=== PATIENT | male | born 1990 | race African-American/Black ===

== ENCOUNTER 2021-04-14 11:37 | Emergency (ER) | payer OTHER ==
[~2021-04-14] VITALS: Ht 182.9 cm; Wt 76.7 kg
--- NOTE | 2021-04-14 11:45 | NUR ---
[facility]/ PD TOOK UNKNOWN AMOUNT OF TYLENOL,MOTRIN, NYQUIL AT 0930 S/P TEXTING FAMILY THAT "HE WANTS TO END IT." KEPT COMFORTABLE IN BED WITH CONTINUOUS SUPERVISION. SAFETY PRECAURIONS MAINTAINED
--- NOTE | 2021-04-14 12:08 | NUR ---
COVID 19 SWAB COLLECTED AND SEND TO LAB
[2021-04-14 12:09] LABS: BASOPHILS % (AUTO) 0.5 % (0.0-2.0); EOSINOPHILS % (AUTO) 2.9 % (0.0-6.0); HEMATOCRIT 47 % (39-51); HEMOGLOBIN 16.4 g/dL (13.5-17.5); LYMPHOCYTES % (AUTO) 22.4 % (20.0-44.0); MEAN CORPUSCULAR HGB CONC 35 g/dl (31.0-36.0); MEAN CORPUSCULAR VOLUME 94 fL (80-96); MONOCYTES # (AUTO) 0.6 K/uL (0.1-1.30); MONOCYTES % (AUTO) 12.2 % (2.0-12.0); NEUTROPHILS # (AUTO) 2.9 K/uL (1.8-8.9); PLATELET COUNT (AUTO) 214 K/uL (150-450); RED BLOOD CELL COUNT(AUTO) 5.03 MIL/uL (4.5-6.0); WHITE BLOOD COUNT (AUTO) 4.6 K/uL (4.3-11.0)
[2021-04-14 12:17] LABS: CALCIUM, SERUM 8.8 mg/dL (8.5-10.1); CARBON DIOXIDE 27 mmol/L (21-32); CHLORIDE 102 mmol/L (98-107); CREATININE 1.3 mg/dL (0.6-1.3); GLUCOSE 132 mg/dL (74-106); POTASSIUM 3.6 mmol/L (3.5-5.1); SODIUM SERUM 138 mmol/L (136-145); UREA NITROGEN, BLOOD 19 mg/dL (7-18)
[2021-04-14 12:22] LABS: ACETAMINOPHEN 52 ug/ml (10-30); ALANINE AMINOTRANSFERASE 33 U/L (12-78); ALCOHOL, BLOOD < 3 mg/dL (0-0); ALKALINE PHOSPHATASE 82 U/L (46-116); ASPARTATE AMINOTRANSFERASE 44 U/L (15-37); BILIRUBIN,DIRECT 0.2 mg/dL (0.0-0.2); BILIRUBIN,TOTAL 0.6 mg/dL (0.2-1.0); TOTAL PROTEIN, SERUM 7.6 g/dL (6.4-8.2)
[2021-04-14 15:00] LABS: BILIRUBIN,URINE SMALL (NEGATIVE); COLOR,URINE DARK YELLOW (YELLOW); LEUKOCYTE ESTERASE ,URINE NEGATIVE (NEGATIVE); NITRITE, URINE NEGATIVE (NEGATIVE); PROTEIN,URINE TRACE mg/dl (NEGATIVE); UGLUCOSE NEGATIVE (NEGATIVE); UROBILINOGEN,URINE 0.2 EU/dL (0.2)
[2021-04-14 15:18] LABS: BACTERIA,URINE None seen /HPF (None Seen); RBC,URINE 0-2 /HPF (0-2); SQUAMOUS EPITHELIAL CELL,UR Few /HPF (None Seen); WBC,URINE 0-2 /HPF (0-3)
--- NOTE | 2021-04-14 21:35 | NUR ---
PT ACCEPTED TO [facility] BY DR GARCIA. ROOM - EAST BED 255-4. # FOR REPORT [phone]
--- NOTE | 2021-04-14 21:41 | NUR ---
TRANSPORT THROUGH [facility] IS 1 HOUR TO 1.5 HOURS PER [facility] DISPATCHER.
[2021-04-14 21:52] VITALS: BP 123/69
--- NOTE | 2021-04-14 23:12 | NUR ---
REPORT GIVEN TO LIZETTE DANIELLE FOR [facility]
--- NOTE | 2021-04-14 23:17 | NUR ---
[facility] UPDATED ETA 20 MINUTES.
--- NOTE | 2021-04-14 23:46 | NUR ---
[facility] AT BEDSIDE FOR TRANSPORT.
== END 2021-04-14 23:50 ==
LOC: ER 11:40
DX: T39.1X1A Poisoning by 4-Aminophenol derivatives, accidental (unintentional), initial encounter (principal); T39.311A Poisoning by propionic acid derivatives, accidental (unintentional), initial encounter; T50.991A Poisoning by other drugs, medicaments and biological substances, accidental (unintentional), initial encounter; J45.909 Unspecified asthma, uncomplicated; Y92.89 Other specified places as the place of occurrence of the external cause; Z20.822 Contact with and (suspected) exposure to COVID-19; F32.A Depression, unspecified
CPT/HCPCS: 36415; 80048; 80076; 80143 ×3; 80307; 80320; 81001; 85025; 87426; 99285; C9803 ×2; U0003; G0480